=== PATIENT | male | born 1970 | race African-American/Black ===

== ENCOUNTER 2016-03-25 05:56 | Inpatient (IN) | payer BC ==
[2016-03-24 16:31] LABS: HEMATOCRIT 41.8 % (42.0-54.0); HEMOGLOBIN 13.3 g/dL (13.5-17.5); MCH 24.4 pg (26.0-34.0); MCHC 31.8 g/dL (31.0-37.0); MCV 76.8 fL (80.0-100.0); MEAN PLATELET VOLUME 9.1 fL (7.4-10.4); RBC 5.44 10x6/uL (4.20-6.10); RDW 15.9 % (11.5-14.5); WBC 13.1 10x3/uL (4.8-10.8)
[2016-03-24 16:40] LABS: APTT 29.3 SECONDS (22.8-39.4); INR 1.01 (0.85-1.17); PROTIME 13.1 SECONDS (11.6-15.0)
[2016-03-24 16:50] LABS: ALBUMIN 3.9 g/dL (3.4-5.0); ANION GAP 18.6 mmol/L (8-16); BILIRUBIN - TOTAL 0.26 mg/dL (0.2-1.3); CALCIUM 9.4 mg/dL (8.5-10.1); CARBON DIOXIDE 21.7 mmol/L (21.0-32.0); CREATININE - SERUM 6.6 mg/dL (0.6-1.3); POTASSIUM - SERUM 5.3 mmol/L (3.5-5.1); PROTEIN - SERUM 7.4 g/dL (6.4-8.2)
[2016-03-24 17:03] LABS: APPEARANCE CLEAR (CLEAR); BILIRUBIN NEGATIVE (NEGATIVE); COLOR YELLOW (YELLOW); GLUCOSE NEGATIVE (NEGATIVE); KETONE NEGATIVE (NEGATIVE); LEUKOCYTE ESTERASE NEGATIVE (NEGATIVE); NITRITE NEGATIVE (NEGATIVE); PROTEIN 1+ mg/dL (NEGATIVE); SPECIFIC GRAVITY 1.015 (1.005-1.020); UROBILINOGEN NORMAL (NORMAL)
[2016-03-24 17:04] LABS: BACTERIA FEW /hpf (NONE SEEN); EPITHELIAL CELLS 0-5 /hpf (0-5); MUCUS <1+ /lpf (NONE SEEN); RED CELLS - URINE OCC /hpf (0-5); WHITE CELLS - URINE RARE /hpf (0-5)
[2016-03-25] VITALS (37 sets, daily range): BP systolic 102–169; BP diastolic 95–122; BMI 27.1; BMI 26.5
[~2016-03-25] VITALS: Ht 185.4 cm; Wt 85.5 kg
[~2016-03-25 05:56] MED LIST: ALTACE10 MG PO; HYDRALAZINE HCL25 MG PO; NORVASC10 MG PO; PREDNISONE5 MG PO; SANDIMMUNE25 MG PO; ULORIC40 MG PO; ZEMPLAR1 MCG PO
--- NOTE | 2016-03-25 10:10 | NUR ---
ADMIT TO ICU. L ARM WRAPPED IN ROYCE WRAPPED IN SLING PERIFERAL VASCULAR CHECK DONE. VOICES NO CO AT TIME.
[2016-03-25 11:19] LABS: HEMATOCRIT 39.2 % (42.0-54.0); HEMOGLOBIN 12.3 g/dL (13.5-17.5); MCH 24.2 pg (26.0-34.0); MCHC 31.4 g/dL (31.0-37.0); MCV 77.2 fL (80.0-100.0); MEAN PLATELET VOLUME 8.8 fL (7.4-10.4); RBC 5.08 10x6/uL (4.20-6.10); RDW 15.7 % (11.5-14.5); WBC 11.7 10x3/uL (4.8-10.8)
--- NOTE | 2016-03-25 11:33 | NUR ---
Is the patient Alert and Oriented? Yes 0 * How many steps to enter\exit or inside your home? 3 0 * PCP DR. SCHWARTZ 0 * Pharmacy [facility] [address] 0 * Preadmission Environment Home with Family 0 * ADLs Independent 0 * Equipment None 0 * List name and contact numbers for known caregivers / representatives who currently or will assist patient after discharge: SPOUSE: LITTLE [phone] * Community resources currently utilized None 0 * Additional services required to return to the preadmission environment? No 0 * Can the patient safely return to the preadmission environment? Yes 0 * Has this patient been hospitalized within the prior 30 days at any hospital? No PATIENT LIVES AT HOME WITH HIS . HIS IS INDEPENDENT IN HIS ADL'S. HIS , LITTLE, WILL DRIVE HIM HOME AT DISCHARGE. HIS PCP IS DR. SCHWARTZ. PATIENT GETS HIS MEDICATION FOR [facility] ON [address] HE DOES NOT USE ANY EQUIPMENT AND DENIES EVER HAVING HOME HEALTH. THERE ARE 3 STEPS TO ENTER HIS HOME. NO DISCHARGE NEEDS IDENTIFIED AT THIS TIME.
[2016-03-25 11:36] LABS: ANION GAP 12.7 mmol/L (8-16); CALCIUM 9.1 mg/dL (8.5-10.1); CARBON DIOXIDE 25.8 mmol/L (21.0-32.0); POTASSIUM - SERUM 5.5 mmol/L (3.5-5.1)
--- NOTE | 2016-03-25 13:00 | NUR ---
SIPPING WATER NO CO AT TIME.
--- NOTE | 2016-03-25 16:30 | NUR ---
EATING FULL LIQUID TRAY NO CO AT TIME.
--- NOTE | 2016-03-25 18:00 | NUR ---
FAMILY AT BEDSIDE. UPDATE GIVEN.
--- NOTE | 2016-03-25 19:45 | NUR ---
ASSESSMENT COMPLETED. SEE ASSESSMENT. LEFT ARM IN SLING WRAPPED IN ROYCE WRAP. PULSE AUDIBLE BY DOPPLER TO THIRD FINGER. RT IJ TRIALYSIS CATH SALINE LOCKED. RT HAND PIV WITH NS @ 20ML/HR. AT BEDSIDE. TEDS AND SCD'S TO LE BILATERAL. AMADOR CATH TO CRITICORE MONITORING SYSTEM. CLEAR, LT YELLOW URINE NOTED. WILL MONITOR.
--- NOTE | 2016-03-25 19:58 | NUR ---
PRN NORCO GIVEN PER REQUEST AND 2100 MEDS GIVEN WITHOUT DIFFICULTY AFTER EATING SOME CHICKEN NOODLE SOUP NOODLES AND A SMALL AMT OF BROTH. WILL MONITOR.
--- NOTE | 2016-03-25 21:00 | NUR ---
NEUROVASULAR ASSESSMENT COMPLETED. LEFT HAND WITH AUDIBLE PULSES VIA DOPPLER TO LEFT THIRD FINGER BY THE [facility]. MORE WATER GIVEN.
--- NOTE | 2016-03-25 22:30 | NUR ---
REPOSITIONED SELF IN BED. TURNED MORE TO RT SIDE. ELEVATED RT ARM. ICE GIVEN PER REQUEST. CHECKED PULSE TO LEFT HAND, AUDIBLE BY DOPPLER. FINGERS WARM TO TOUCH AND ABLE TO MOVE THEM. REPORTS SOME "NUMB" FEELINGS TO BOTH HANDS SOMEWHAT. WILL MONITOR.
[2016-03-26] VITALS (18 sets, daily range): BP systolic 135–166; BP diastolic 98–121; Ht 185.4 cm; Wt 85.5 kg
--- NOTE | 2016-03-26 00:16 | NUR ---
PRN PO PAIN MEDS GIVEN PER REQUEST. REPORTS PAIN TO LEFT ARM IS ABOUT A 4/10 ON NUMBER SCALE.
--- NOTE | 2016-03-26 02:10 | NUR ---
COUGHING. NON-PRODUCTIVE AT THIS TIME. B/P CUFF CAME OFF. REPLACED ONTO ARM. DENIES NEEDS. WILL MONITOR.
--- NOTE | 2016-03-26 03:33 | NUR ---
IV MORPHINE GIVEN FOR PAIN PER REQUEST. REASSESSMENT COMPLETED. SEE ASSESSMENT. COUGHING. UNABLE TO HAVE A PRODUCTIVE COUGH THUS FAR. WATER GIVEN PER REQUEST. WILL CONTINUE TO MONITOR.
--- NOTE | 2016-03-26 05:00 | NUR ---
MONO GIVEN PER REQUEST. DOES NOT WANT TO TAKE PO PAIN PILL WITHOUT SOMETHING ON HIS STOMACH. WILL CALL WHEN HE NEEDS THE PAIN PILL. REASSESSED CIRCULATION TO LEFT 3RD FINGER. AUDIBLE BY DOPPLER. FINGERS WARM TO TOUCH AND MOVEMENT INTACT. WILL MONITOR.
--- NOTE | 2016-03-26 05:55 | NUR ---
AM LABS DRAWN FROM RT IJ TRIALYSIS. DRAWS BLOOD AND FLUSHES WITHOUT DIFFICULTY. LEMON-STEBBINS DRINK GIVEN PER REQUEST. DENIES NEED FOR PAIN MEDS AT THIS TIME.
[2016-03-26 06:07] LABS: BASOPHILS 0.2 % (0.0-2.0); EOSINOPHILS 1.1 % (0-7); HEMATOCRIT 37.9 % (42.0-54.0); HEMOGLOBIN 11.8 g/dL (13.5-17.5); IMMATURE GRANULOCYTES 0.4 % (0-5); LYMPHOCYTES 15.3 % (15-50); MCH 24.1 pg (26.0-34.0); MCHC 31.1 g/dL (31.0-37.0); MCV 77.5 fL (80.0-100.0); MEAN PLATELET VOLUME 8.9 fL (7.4-10.4); MONOCYTES 10.2 % (2-11); NEUTROPHILS 72.8 % (40-80); PLATELET COUNT 255 10x3/uL (130-400); RBC 4.89 10x6/uL (4.20-6.10); RDW 15.8 % (11.5-14.5); WBC 14.1 10x3/uL (4.8-10.8)
[2016-03-26 07:05] LABS: ANION GAP 18.6 mmol/L (8-16); CALCIUM 8.8 mg/dL (8.5-10.1); CARBON DIOXIDE 20.7 mmol/L (21.0-32.0); CREATININE - SERUM 7.1 mg/dL (0.6-1.3); POTASSIUM - SERUM 5.3 mmol/L (3.5-5.1)
--- NOTE | 2016-03-26 07:30 | NUR ---
SPOKE WITH LUIS DEL VALLE REGARDING I.R. CONSULT. CONSULT D/C'ED IN COMPUTER.
--- NOTE | 2016-03-26 07:30 | NUR ---
ASSESSMENT COMPLETE. AAO X4. SINUS TACHYCARDIA HR 102. S1S2 NOTED PEDAL PULSES PALP. RIGHT RADIAL PULSE PALP. LEFT MIDDLE FINGER PULSE FOUND BY DOPPLER. CLEAR LUNG SOUNDS IN ALL LOBES, ON ROOM AIR. ACTIVE BOWEL SOUNDS X4. GENERALIZED WEAKNESS. LEFT ARM IN WRAP AND SLING. ENCOURAGED COUGH AND DEEP BREATHING EXERCISES. BRITTNY AND SCD'S ON. FOR OTHER ASSESSMENT FINDINGS SEE FLOWSHEET.
--- NOTE | 2016-03-26 09:05 | NUR ---
FAMILY AT BEDSIDE, UPDATE PROVIDED. PATIENT REFUSED TO TURN TO LEFT SIDE. ENCOURAGED DEEP BREATHING, STRONG COUGH EFFORT.
--- NOTE | 2016-03-26 11:15 | NUR ---
REASSESSMENT COMPLETE. LEFT MIDDLE FINGER PULSE FOUND BY DOPPLER. PAIN IN LEFT ARM/SHOULDER. MINIMAL CHANGES IN OTHER ASSESSMENT FINDINGS SEE FLOWSHEET FOR DETAILS.
--- NOTE | 2016-03-26 13:00 | NUR ---
REMOVED AMADOR PER ORDER OF DR. ROMERO. GAVE PATIENT URINAL. PT VERBALIZES RELIEF OF PAIN IN LEFT SHOULDER.
--- NOTE | 2016-03-26 15:00 | NUR ---
DR. HANNAH AT BEDSIDE. NEW ORDERS RECEIVED. PATIENT REFUSING PAIN MEDICATION. PAIN 06/06.
--- NOTE | 2016-03-26 17:50 | NUR ---
PATIENT TRANSFERED FROM ICU WITH HX OF LEFT ARM FISTULA ANERYSM. HX CHRONIC KIDNEY DIEASES; HYPERTENTION. PATIENT ARRIVED ON UNIT WITH HIS . ALERT/ORIENT X4. RIGHT IJ TRIPLE PORT. LEFT UPPER ARM SWOLLEN, DRESSING INTACT. ON A RENAL FULL LIQ DIET.
--- NOTE | 2016-03-26 23:44 | NUR ---
NURSE ROUNDS 21:00 - PT AWAKE, ALERT, ORIENTED, SITTING UP IN BED, HOB 45 DEGREES. PT STATES HIS LT ARM PAIN IS WELL CONTROLLED WITH HIS PRN PAIN MEDICATIONS, BUT THAT IT DOES TAKE BOTH MORPHINE AND NORCO FOR ALMOST COMPLETEL RELIEF. PT DENIES ANY ACUTE NEEDS. CONTINUE TO MONITOR CLOSELY.
[2016-03-27 00:23] VITALS: BP 135/85
--- NOTE | 2016-03-27 01:24 | NUR ---
SCD'S REMOVED PER PT REQUEST. BRITTNY ELY STILL ON.
--- NOTE | 2016-03-27 03:02 | NUR ---
PT LYING IN BED, EYES CLOSED, RESPIRATIONS EVEN AND UNLABORED. AT BEDSIDE. PTS HOB IS 45 DEGREES. CONTINUE TO MONITOR CLOSELY.
[2016-03-27 04:20] VITALS: BP 155/99
--- NOTE | 2016-03-27 04:53 | NUR ---
DAILY WEIGHT ON STANDING SCALE IS 196.8 POUNDS / 89.45 KG
[2016-03-27 05:07] LABS: BASOPHILS 0.1 % (0.0-2.0); EOSINOPHILS 0.8 % (0-7); HEMATOCRIT 37.9 % (42.0-54.0); HEMOGLOBIN 11.9 g/dL (13.5-17.5); IMMATURE GRANULOCYTES 0.3 % (0-5); LYMPHOCYTES 10.7 % (15-50); MCH 24.3 pg (26.0-34.0); MCHC 31.4 g/dL (31.0-37.0); MCV 77.3 fL (80.0-100.0); MEAN PLATELET VOLUME 8.9 fL (7.4-10.4); MONOCYTES 11.9 % (2-11); NEUTROPHILS 76.2 % (40-80); PLATELET COUNT 250 10x3/uL (130-400); RDW 15.6 % (11.5-14.5); WBC 14.4 10x3/uL (4.8-10.8)
[2016-03-27 05:59] LABS: ANION GAP 15.2 mmol/L (8-16); CALCIUM 8.9 mg/dL (8.5-10.1); CARBON DIOXIDE 24.1 mmol/L (21.0-32.0); CREATININE - SERUM 6.7 mg/dL (0.6-1.3); PHOSPHOROUS 4.2 mg/dL (2.5-4.9); POTASSIUM - SERUM 5.3 mmol/L (3.5-5.1)
[2016-03-27 08:00] VITALS: BP 145/97
[2016-03-27 12:00] VITALS: BP 138/89
--- NOTE | 2016-03-27 13:15 | NUR ---
ALERT AND ORIENTED X4. FAMILY AT BEDSIDE. TELEMETRY ORDERED PER . INITIATE TELEMETRY MONITORING. SINUS TACH 119bpm ON TELEMETRY. CONTINUE PAIN MANAGEMENT. DENIES SOB. BRITTNY HOES ON FREE FROM WRINKLES. REFUSE SCDs. CONITNUE PLAN OF CARE. BED LOCKED AND LOW. CALL LIGHT IN REACH. TWO SIDERAILS UP.
[2016-03-27 16:00] VITALS: BP 145/99
--- NOTE | 2016-03-27 16:50 | NUR ---
ALERT AND ORIENTED X4. SITTING UP IN BED. TEMPERATURE 99.9. NO TYLENOL ORDERED. REMOVE ALL COVERS EXCEPT ONE SHEET. PLACE ICE PACKS UNDER ARMS BILATERALLY. REASSESS TEMPERATURE IN 20MINS. SINUS TACH 121bpm ON TELEMETRY. PAIN MANAGED. DENIES SOB. BRITTNY HOES ON. FREE FROM WRINKLES. CONTINUE PLAN OF CARE. BED LOCKED AND LOW. CALL LIGHT IN REACH. TWO SIDERAILS UP.
--- NOTE | 2016-03-27 19:23 | NUR ---
PT AWAKE, ALERT, ORIENTED, DENIES ANY NEEDS. CONTINUE TO MONITOR CLOSELY. BED LOW, CALL LIGHT IN REACH, SIDE RAILS X 2, HOB 45 DEGREES.
[2016-03-27 20:00] VITALS: BP 152/94
[2016-03-28] VITALS: BP 132/97
--- NOTE | 2016-03-28 00:57 | NUR ---
PTS HEART RATE CONTINUES TO BE TACHYCARDIC, ESPECIALLY WITH AMBULATING TO BATHROOM. PT DENIES ANY ACUTE NEEDS OR DIFFICULTIES AT THIS TIME. I DISCUSSED WITH PT AND THE POSSIBLE REASONINGS OF AN ELEVATED PULSE RATE, INFECTION, INFLAMMATION, TRAUMA, ETC... PTS TEMP REMAINS 99.1 AT THIS TIME. CONTINUE TO MONITOR CLOSELY.
[2016-03-28 04:00] VITALS: BP 146/93
--- NOTE | 2016-03-28 05:04 | NUR ---
PT AWAKE, ALERT, ORIENTED, DENIES ANY NEEDS AT THIS TIME. I DID COLLECT LAB PER ORDER FROM PTS TRIALYSIS. CONTINUE TO MONITOR CLOSELY. AT BEDSIDE.
[2016-03-28 05:44] LABS: BASOPHILS 0.1 % (0.0-2.0); EOSINOPHILS 0.2 % (0-7); HEMATOCRIT 40.7 % (42.0-54.0); HEMOGLOBIN 12.9 g/dL (13.5-17.5); IMMATURE GRANULOCYTES 0.5 % (0-5); LYMPHOCYTES 9.3 % (15-50); MCH 24.1 pg (26.0-34.0); MCHC 31.7 g/dL (31.0-37.0); MCV 75.9 fL (80.0-100.0); MEAN PLATELET VOLUME 9.5 fL (7.4-10.4); MONOCYTES 18.1 % (2-11); NEUTROPHILS 71.8 % (40-80); PLATELET COUNT 266 10x3/uL (130-400); RBC 5.36 10x6/uL (4.20-6.10); RDW 15.4 % (11.5-14.5); WBC 19.5 10x3/uL (4.8-10.8)
[2016-03-28 05:55] LABS: ANION GAP 17.3 mmol/L (8-16); CALCIUM 9.6 mg/dL (8.5-10.1); CARBON DIOXIDE 24.8 mmol/L (21.0-32.0); CREATININE - SERUM 7.1 mg/dL (0.6-1.3); POTASSIUM - SERUM 5.1 mmol/L (3.5-5.1)
[2016-03-28 08:00] VITALS: BP 155/101
[2016-03-28 12:00] VITALS: BP 142/100
--- NOTE | 2016-03-28 14:16 | EC ---
PATIENT:ELLIOTT CARCAMO DATE OF SERVICE: 03/25/16 SEX: M MEDICAL RECORD: [id number] DATE OF : [birth year] LOCATION:D.M2 D.211 AGE OF PATIENT: 45 ADMISSION DATE: 03/25/16 REFERRING PHYSICIAN: INTERPRETING PHYSICIAN: SRIKANTH NOVOA MD ECHOCARDIOGRAM REPORT ECHO CHARGES 4 ECHO COMPLETE CLINICAL DIAGNOSIS: TACHYCARDIA ECHOCARDIOGRAPHIC MEASUREMENTS (adult normal given) AC root (d.<3.7cm) 3.5 LV Septum d (<1.2 cm> 1.3 Valve Excursion 2.3 LV Septum (systole) 2.0 Left Atria (s.<4.0cm> 3.1 LVPW d(<1.2cm) 1.4 RV (d.<2.3cm) 2.3 LVPW (sytole) 1.9 LV diastole(<5.6CM) 4.8 MV E-F(>70mm/sec) LV systole 2.7 LVOT Diameter 1.9 MV exc.(>10mm) Est.ejection fraction (50-75%) Pericardial Effusion N DOPPLER: LVIT A 96.0 E 49.0 LA RVSP 43.0 LVOT 110 AOP1/2T Asc. Ao 160 RVOT 100 RA PA 107 AV Gradient Peak 10.3 AV Mean 4.4 AV Area 2.1 MV Gradient Peak 6.1 MV Mean 2.0 MV Area COMMENTS: Digital Media Coordinator: Leesa BALDWIN Glucose And Syrup Weigher:Douglas Unger TAPE# PACS DATE OF SERVICE: 03/28/2016 Echocardiogram FINDINGS: 1. Left ventricle chamber size is within normal limits. Left ventricular systolic function is normal. Overall ejection fraction estimated at 55%. 2. Left atrium, right atrium and right ventricular chamber sizes are within normal limits. 3. Valvular structures have normal structure and motion. ECHOCARDIOGRAM REPORT [id number] ELLIOTT CARCAMO 4. Doppler interrogation only reveals trace tricuspid regurgitation, no other valvular insufficiency or stenosis. Pulmonary systolic pressure is normal estimated 43 mmHg. 5. No evidence of pericardial effusion or left ventricular thrombus. TRANSINT:[id number] Voice Confirmation ID: [id number] DOCUMENT ID: [id number] SRIKANTH NOVOA MD at 1419 CC: [id number] DICTATION DATE: 03/28/16 110 ACCOUNTING INSTRUCTOR: 03/28/16 1205 ADM IN [facility] [address] [place] [id number]
[2016-03-28 16:00] VITALS: BP 142/91
--- NOTE | 2016-03-28 18:48 | NUR ---
ALERT AND ORIENTED X4. DENIES PAIN MEDICATION. TEMP 100.3. ENCOURAGE INSENTIVE SPIROMETER PER . REMOVE ALL COVERS. DENIES SOB. SINUS TACH 101bpm ON TELEMETRY. CONTINUE PLAN OF CARE. AT BEDSIDE. PREPARE SHIFT CHANGE REPORT. BED LOCKED AND LOW. CALL LIGHT IN REACH. TWO SIDERAILS UP.
[2016-03-28 20:00] VITALS: BP 127/88
[2016-03-29] VITALS: BP 127/85
--- NOTE | 2016-03-29 01:20 | NUR ---
NURSE ROUNDS 19:30 - PT AWAKE, ALERT, ORIENTED, SITTING UP IN BED REQUESTING TO HAVE DRESSING ON LEFT ARM CHECKED. THERE IS A SMALL AMOUNT OF OOZING UNDER THE DRESSING THAT IS FROM MUCH EARLIER, THE BANDAGE IS INTACT, DRY, AND CLEAN. PT HAS ALSO HAD A LOW GRADE TEMP WITH BODY ACHES AND FEELING COLD. PRN TYLENOL GIVEN AND WILL MONITOR CLOSELY. PT DENIES ANY NEEDS AND REFUSES TO TAKE AND OPIOD PAIN MEDICATION AT THIS TIME R/T DOES NOT LIKE BEING DROWSY. AT BEDSIDE. CONTINUE TO MONITOR CLOSELY.
[2016-03-29 04:00] VITALS: BP 120/78
[2016-03-29 06:11] LABS: HEMATOCRIT 38.6 % (42.0-54.0); HEMOGLOBIN 12.4 g/dL (13.5-17.5); MCH 24.3 pg (26.0-34.0); MCHC 32.1 g/dL (31.0-37.0); MCV 75.7 fL (80.0-100.0); MEAN PLATELET VOLUME 9.2 fL (7.4-10.4); PLATELET COUNT 265 10x3/uL (130-400); RDW 15.2 % (11.5-14.5); WBC 21.6 10x3/uL (4.8-10.8)
[2016-03-29 06:19] LABS: ANION GAP 12.2 mmol/L (8-16); CALCIUM 9.7 mg/dL (8.5-10.1); CARBON DIOXIDE 27.4 mmol/L (21.0-32.0); POTASSIUM - SERUM 4.6 mmol/L (3.5-5.1)
[2016-03-29 06:22] LABS: PHOSPHOROUS 5.8 mg/dL (2.5-4.9)
[2016-03-29 07:44] LABS: LYMPHOCYTES 12 % (15-50); MONOCYTES 15 % (2-11); NEUTROPHILS 70 % (40-80); PLATELET ESTIMATE NORMAL
[2016-03-29 08:20] VITALS: BP 145/97
[2016-03-29 12:07] VITALS: BP 124/86
--- NOTE | 2016-03-29 13:30 | NUR ---
ALERT AND ORIENTED X4. EATING IN BED. LT ARM DRESSING CHANGED. NO DRAINAGE. DENIES PAIN OR SOB. PHYSICAL THERAPY ACCOMPANY AMBULATING IN [place]Z. NO ASSISTANCE NEEDED. GAIT STEADY. SINUS RHYTHM 97bpm ON TELEMETRY. CONTINUE PLAN OF CARE. BED LOCKED AND LOW. CALL LIGHT IN REACH. TWO SIDERAILS UP. BRITTNY HOES ON. FREE FROM WRINKLES.
--- NOTE | 2016-03-29 13:53 | NUR ---
Nutrition follow-up: Diet: Renal PO Intake ~60% average of last 9 meals Labs reviewed Wt: 190# Will continue to provide food choices with selective menus and honor food preferences within diet restrictions. RDN will order Nepro BID. RDN following.
[2016-03-29 16:07] VITALS: BP 125/80
--- NOTE | 2016-03-29 18:09 | NUR ---
ALERT AND ORIENTED X4. RESTING IN BED. AT BEDSIDE. NO CHANGE. DENIES SOB OR PAIN. PREPAIR SHIFT CHANGE REPORT. SINUS RHYTHM 98bpm ON TELEMETRY. CONTINUE SAFETY PRECAUTIONS.
[2016-03-29 19:00] VITALS: BP 108/71
--- NOTE | 2016-03-29 21:03 | NUR ---
PT AWAKE, ALERT, ORIENTED, DENIES ANY NEEDS, DENIES FEVER AT THIS TIME, DENIES PAIN. BLOOD CXL X 1 BEING DRAWN FROM RIGHT FOREARM AT THIS TIME. WILL COLLECT U/A ORDERED. CONTINUE TO MONITOR CLOSELY. AT BEDSIDE.
--- NOTE | 2016-03-29 21:41 | NUR ---
HOLDING PTS B/P R/T IT BEING 108/71 AT THIS TIME. PT STATES WHEN IT IS THIS LOW, HE FEELS WEAK. WILL CONTINUE TO MONITOR CLOSELY AND ADMINISTER PRN.
[2016-03-29 22:41] LABS: APPEARANCE CLEAR (CLEAR); BILIRUBIN NEGATIVE (NEGATIVE); COLOR YELLOW (YELLOW); GLUCOSE NEGATIVE (NEGATIVE); KETONE NEGATIVE (NEGATIVE); LEUKOCYTE ESTERASE NEGATIVE (NEGATIVE); NITRITE NEGATIVE (NEGATIVE); PROTEIN 1+ mg/dL (NEGATIVE); SPECIFIC GRAVITY 1.015 (1.005-1.020); UROBILINOGEN NORMAL (NORMAL)
[2016-03-29 22:42] LABS: RED CELLS - URINE 0-5 /hpf (0-5); WHITE CELLS - URINE OCC /hpf (0-5)
[2016-03-29 22:43] LABS: BACTERIA FEW /hpf (NONE SEEN)
[2016-03-30] VITALS: BP 126/89
[2016-03-30 04:00] VITALS: BP 125/86
--- NOTE | 2016-03-30 05:47 | NUR ---
PT LYING IN BED, EYES CLOSED, RESPIRATIONS EVEN AND UNLABORED, EASILY ROUSABLE TO VERBAL STIMULI. PT AND ARE BOTH ASKING WHEN POSSIBLE D/C WILL BE. DENIES PAIN OR ANY OTHER NEEDS. CONTINUE TO MONITOR CLOSELY.
[2016-03-30 06:21] LABS: BASOPHILS 0.1 % (0.0-2.0); EOSINOPHILS 0.5 % (0-7); HEMATOCRIT 37.1 % (42.0-54.0); HEMOGLOBIN 11.9 g/dL (13.5-17.5); IMMATURE GRANULOCYTES 0.4 % (0-5); LYMPHOCYTES 9.8 % (15-50); MCHC 32.1 g/dL (31.0-37.0); MCV 74.8 fL (80.0-100.0); MEAN PLATELET VOLUME 9.6 fL (7.4-10.4); MONOCYTES 16.9 % (2-11); NEUTROPHILS 72.3 % (40-80); PLATELET COUNT 337 10x3/uL (130-400); RBC 4.96 10x6/uL (4.20-6.10); RDW 15.2 % (11.5-14.5); WBC 20.4 10x3/uL (4.8-10.8)
[2016-03-30 06:37] LABS: ANION GAP 16.4 mmol/L (8-16); CALCIUM 9.4 mg/dL (8.5-10.1); CARBON DIOXIDE 24.3 mmol/L (21.0-32.0); CREATININE - SERUM 6.5 mg/dL (0.6-1.3); POTASSIUM - SERUM 4.7 mmol/L (3.5-5.1)
[2016-03-30 07:48] VITALS: BP 139/78
[2016-03-30 11:35] VITALS: BP 137/101
--- NOTE | 2016-03-30 13:09 | NUR ---
INTRODUCED SELF TO PT, PT STATES NO NEW NEEDS AT THIS TIME, WILL CONTINUE TO MONITOR, CALL LIGHT WITHIN REACH.
--- NOTE | 2016-03-30 14:15 | NUR ---
PT RESTING QUIETLY WATCHING TV, RESPIRATIONS EVEN, SIDE RAILS UP X'S 2, BED IN LOW POSITION, CALL LIGHT WITHIN REACH, HARRIET CONTINUE TO MONITOR.
[2016-03-30 16:14] VITALS: BP 135/54
--- NOTE | 2016-03-30 16:27 | NUR ---
PERIPHERAL IV INSERTED, 20 GAUGE X'S 1 STICK, RIGHT INNER FOREARM. PT TOLERATED WELL, WILL CONTINUE TO MONITOR, CALL LIGHT WITHIN REACH.
--- NOTE | 2016-03-30 17:14 | NUR ---
REMOVED PT'S IJ, PT TOLERATED WELL. NO OTHER NEEDS AT THIS TIME. WILL CONTINUE TO MONTIOR.
--- NOTE | 2016-03-30 18:08 | NUR ---
PT RESTING QUIETLY, RESPIRATIONS EVEN, EMPTIED 600 CC OF CLEAR YELLOW URINE, WILL CONTINUE TO MONITOR, CALL LIGHT WITHIN REACH.
[2016-03-30 20:00] VITALS: BP 124/81
[2016-03-31] VITALS: BP 125/56
[2016-03-31 04:00] VITALS: BP 128/90
--- NOTE | 2016-03-31 04:21 | NUR ---
NURSE ROUNDS 19:30 - PT AWAKE, ALERT, ORIENTED, SITTING UP IN BED, DAUGHTER AT BEDSIDE. PT DENIED ANY NEEDS. CONTINUE TO MONITOR CLOSELY.
[2016-03-31 06:07] LABS: BASOPHILS 0.2 % (0.0-2.0); EOSINOPHILS 0.6 % (0-7); HEMATOCRIT 36.1 % (42.0-54.0); HEMOGLOBIN 11.7 g/dL (13.5-17.5); IMMATURE GRANULOCYTES 0.5 % (0-5); LYMPHOCYTES 11.2 % (15-50); MCH 24.2 pg (26.0-34.0); MCHC 32.4 g/dL (31.0-37.0); MCV 74.7 fL (80.0-100.0); MEAN PLATELET VOLUME 9.3 fL (7.4-10.4); MONOCYTES 14.9 % (2-11); NEUTROPHILS 72.6 % (40-80); PLATELET COUNT 351 10x3/uL (130-400); RBC 4.83 10x6/uL (4.20-6.10); RDW 15.1 % (11.5-14.5); WBC 16.8 10x3/uL (4.8-10.8)
[2016-03-31 06:33] LABS: ANION GAP 16.5 mmol/L (8-16); CALCIUM 9.7 mg/dL (8.5-10.1); CARBON DIOXIDE 23.2 mmol/L (21.0-32.0); CREATININE - SERUM 6.1 mg/dL (0.6-1.3); POTASSIUM - SERUM 4.7 mmol/L (3.5-5.1)
[2016-03-31 07:17] VITALS: BP 124/88
--- NOTE | 2016-03-31 07:57 | NUR ---
0710-AM ROUNDING MADE WITH PATIENT RESTING WITH EYES CLOSED, RESP ARE EVEN AND NON LABORED. ON HEART MONITOR SHOWING SR, HR 96. RIGHT FA SEEN WITH SALINE LOCK. ON ROOM AIR. BRITTNY HOSE ON. WILL CONTINUE TO MONITOR.
[2016-03-31 08:10] VITALS: BP 124/88
--- NOTE | 2016-03-31 08:27 | NUR ---
PT IN RIGHT LATERAL POSITION, EYES CLOSED. AROUSED UPON ENTERING ROOM. AM MEDS GIVEN, SEE EMAR. IV IN RIGHT FA NOTED TO BE INFILTRATED. DC'D WITH CATH TIP INTACT. PROTONIX AND ANCEF IV NOT GIVEN AT THIS TIME. DEDRICK QUEVEDO NOTIFIED. PT DENIES PAIN OR FURTHER NEEDS AT THIS TIME.
--- NOTE | 2016-03-31 08:30 | NUR ---
TERRI PADGETT APN PAGED IV IS INFILTRATED TO SEE IF WE CAN SWITCH THE ANCEF TO ORAL. AWAITING CALL BACK.
--- NOTE | 2016-03-31 08:34 | NUR ---
CALL BACK FROM [facility] WITH NEW ORDERS.
[2016-03-31] MEDS ORDERED: METOPROLOL TART50 MG PO (09:15)
[2016-03-31 11:50] VITALS: BP 119/83
--- NOTE | 2016-03-31 13:10 | NUR ---
VERBAL AND WRITTEN DISCHARGE INSTRUCTIONS GIVEN TO PATIENT. AWAITING RIDE.
--- NOTE | 2016-03-31 13:20 | NUR ---
DISCHARGED HOME WITH PARENT.
--- NOTE | 2016-04-02 13:50 | OP ---
PATIENT NAME: ELLIOTT CARCAMO MEDICAL RECORD: [id number] :74 LOCATION:D. D.2113 ADMISSION DATE:03/25/16 SURGEON: SEBASTIAN ROMERO MD DATE OF OPERATION: 03/25/2016 SURGEON: Sebastian Romero M.D. DIRECTOR OF MANAGED CARE: Stefan Ramachandran MD ANESTHESIA: General endotracheal, Dr. Herndon. OPERATION PERFORMED: 1. Resection of false aneurysm, left brachial artery. 2. Repair of left brachial artery. 3. Ligation of the cephalic vein at the subclavian left upper extremity. 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 INDICATION FOR OPERATION: Giant AV fistula. FINDINGS AT OPERATION: Giant AV fistula, large brachial artery and large cephalic vein, and false aneurysm of the brachial artery. ESTIMATED BLOOD LOSS: Less than 100 mL. DESCRIPTION OF PROCEDURE: After informed consent, adequate preoperative medication evaluation, the patient was brought to the operating room and placed on the table in the supine position. After induction of general endotracheal anesthesia and application of appropriate monitoring devices, the left upper extremity and shoulder were prepped and draped in a sterile field, utilizing Betadine scrub, alcohol, and Betadine solution. A Betadine-impregnated drape was also used. A curvilinear incision was made in the upper arm and curved into a transverse incision over the antecubital fossa. Dissection was carried down to the fascia. The false aneurysm was rotated laterally and dissection carried out to the brachial artery, which was controlled above and below the fistula. The fistula was then dissected in its proximal portion and resection of the false aneurysm was performed utilizing an Endo-AMBROCIO stapler at the neck of the false aneurysm. The stump was then oversewn plicating the area and reconstructing the brachial artery at this point. Attention was then turned toward the cephalic vein, as it enters the subclavian vein, a subclavian incision was made and dissection carried down to the fascia. The deltopectoral groove was dissected and the vein isolated above the subclavian vein. This was then transected with an Endo-AMBROCIO stapler. The lower end of the fistulous vein was opened and blood drained. There was no active bleeding from collateral veins into this area. This was then ligated more proximally utilizing an Endo-AMBROCIO stapler. The brachial artery was then secured in its anatomic position and the wounds irrigated with copious amounts of antibiotic solution and normal saline. There was no active bleeding. Instrument count and sponge counts were correct times 2. The antecubital fossa was closed with 3-0 Vicryl and 5-0 subcuticular Monocryl. The subclavian incision was closed with 3-0 Vicryl and 5-0 subcuticular Monocryl. Sterile dressings were applied. An Jamie bandage was OPERATIVE REPORT [id number] ELLIOTT CARCAMO used to wrap the hand and arm exposing the fingers for neurovascular checks and a shoulder immobilizer was used to place compression on the venous structures in the left upper extremity and subclavian area. The patient tolerated this portion of the procedure well. The case was turned over to Dr. Ramachandran for placement of a Trialysis catheter. The patient tolerated the procedure well and was transferred to the ICU in stable condition. TRANSINT:[id number] Voice Confirmation ID: [id number] DOCUMENT ID: [id number] SEBASTIAN ROMERO MD at 1350 CC: [id number] DICTATION DATE: 03/25/16 1028 PRE OWNED SALES CONSULTANT: 03/25/160 DIS IN 03/31/16 [facility] [address] [place] [address]
--- NOTE | 2016-04-02 13:50 | HP ---
PATIENT: ELLIOTT CARCAMO MEDICAL RECORD: [id number] ACCOUNT: [id number] LOCATION:[address] : 74 ADMISSION DATE: 03/25/16 HISTORY AND PHYSICAL EXAMINATION ELLIOTT Proctor (45yo, M) ID# [id number]. Date/Time03/17/2016 01:54EKILR02/17/1973Servic Dept.NPP_[facility] ClinicProviderEDKELLY ROMERO MDInsuranceMed Primary: [place] Insurance # : [id number] Employer Name : [employer] Prescription: CMX - Member is eligible. 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 Here for test results of MRA LUE03/17/2016 01:42 pmBMI:27.1 03/17/2016 01:42 pmAllergies Reviewed Allergies NKDAMedications Reviewed Medications amLODIPine 10 mg nkoasr76/29/16 filledCaremarkcolchicine 0.6 mg capsule Take 1 capsule(s) as needed by oral route.02/23/16 enteredCindy BrowncycloSPORINE 25 mg sxovsmq39/12/17 filledCaremarkFluzone Quad [id number] 60 mcg (15 mcg x 4)/0.5 mL IM xdhqrtktig74/29/16 filledCaremarkhydrALAZINE 25 mg /24/16 filledCaremarkK-Phos Original 500 mg soluble /13/16 filledCaremarkmethylPREDNISolone 4 mg tablets in a dose pack08/01/15 filledCaremarkpredniSONE 5 mg eferms66/24/16 filledCaremarkramipril 10 mg unttufd54/24/16 filledCaremarkUloric 40 mg tablet Take 1 tablet(s) every day by oral route.02/23/16 enteredCindy BrownZemplar 1 mcg jpvksog96/24/16 filledCaremarkProblems Reviewed Problems 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 HPI Peripheral Vascular Disease Reported by patient. Notes: LUE uncomfortable, feels heavy compared to right side. No difference in strength side to side. aneurysmal AV fistula ROS ROS as noted in the HPI Physical Exam Patient is a 45-year-old male. Constitutional: General Appearance well nourished and developed and healthy-appearing. Level of Distress NAD. Ambulation ambulating normally. Cardiovascular: Apical Impulse not displaced or no thrill. Heart Auscultation normal s1 and s2; no murmurs, rubs, or gallops; and RRR. Arterial Pulses no abdominal aorta bruits, femoral bruits, or popliteal bruits and 2+ bilateral, carotid 2+ bilateral, femoral 2+ bilate ral, popliteal 2+ bilateral, and dorsalis pedis 2+ bilateral; large left arterial venous fistula with aneurysmal changes antecubital mid and upper arm and axillary artery. Edema no edema and varicosities; giant AV fistula left upper extremity. Lungs: Repir atory Effort no dyspnea. Percussion no hyperresonance or dullness or flatness. Auscultation no wheezing, rhonchi, or rales / crackles and breathing sounds normal, good air movement, and CTA except as noted. Abdomen: Bowl Sounds normal. Inspection and Palp ation no tenderness, guarding, masses, or rebound tenderness and soft and non-distended. Liver non-tender and no hepatomegaly. Spleen non-tender and no splenomegaly. Hernia none palpable. Musculoskeletal System: Gait And Stance normal gait and stance. Digits and Nails normal nails and no cyanosis. Neurologic: Cranial Nerves grossly intact. Reflexes DTRs 2+ bilaterally throughout. Sensation grossly intact. Lymph Nodes: Lymph Nodes no cervical LAD, supraclavicular LAD, axillary LAD, or inguinal LAD. Eyes: Lids and Conjunctivae no discharge or pallor and non-injected. Pupils PERRLA. Cornea grossly intact. EOM EOMI. Lens clear. Sclerae non-icteric. Neck: Neck no masses, enlarged lymph nodes, or carotid bruits and supple and trachea midline. Thyroid no enlargement or nodules and non-tender. HISTORY AND PHYSICAL [id number] ELLIOTT CARCAMO Skin: Inspection and Palpation no rash, lesions, ulcers, jaundice, or abnormal nevi. 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 Encounter Sign-Off Encounter signed-off by Sebastian Romero MD, 03/17/2016. Encounter performed and documented by Sebastian Romero MD Encounter reviewed & signed by Sebastian Romero MD on 03/17/2016 at 2:18pm SEBASTIAN ROMERO MD at 1350 CC: [id number] DICTATION DATE: 03/17/16 1418 ENTRY EXAMINER: DM 03/23/16 1053 DIS IN 03/31/16 [facility] [address] [place] [address]
--- NOTE | 2016-04-27 10:18 | OP ---
PATIENT NAME: ELLIOTT CARCAMO MEDICAL RECORD: [id number] :74 LOCATION:D. D.2113 ADMISSION DATE:03/25/16 SURGEON: STEFAN GOLD MD DATE OF OPERATION: 03/25/2016 PREOPERATIVE DIAGNOSIS: End-stage renal disease without chronic access for hemodialysis. POSTOPERATIVE DIAGNOSIS: End-stage renal disease without chronic access for hemodialysis. PROCEDURE: Insertion of right internal jugular Trialysis catheter. SURGEON: Stefan Gold MD COST ACCOUNTING ANALYST: None. BLOOD LOSS: Minimal. ANESTHESIA: General. COMPLICATIONS: None. This procedure have occurred at the end of the AV fistula ligation and resection of a pseudoaneurysm, which I assisted Dr. Palumbo with. I alone inserted the Trialysis catheter. I was asked by Dr. Carcamo, the patient's hub bander, to insert the Trialysis catheter in case large volume resuscitation was necessary or hemodialysis. OPERATIVE COURSE: The patient was positioned in the Trendelenburg position. The right neck was sterilely prepped and draped. I percutaneously accessed the right internal jugular vein in an antegrade fashion. A guidewire passed easily. A small skin scarlet was accomplished. A vessel dilator was used to dilate a subcutaneous tract. A short Trialysis catheter was inserted to the hub. This is a non-tunneled, non-cuffed triple lumen hemodialysis catheter. All lumens flushed easily and aspirated dark, nonpulsatile blood. A sterile dressing was applied. A portable chest x-ray would be obtained postoperatively. Trialysis catheter placed 03/25/2016. TRANSINT:[id number] Voice Confirmation ID: [id number] DOCUMENT ID: [id number] STEFAN GOLD MD at 1018 CC: [id number] DICTATION DATE: 03/25/16 1026 ELECTRICIAN CRANE MAINTENANCE: 03/25/161951 DIS IN 03/31/16 [address] [place] [address]
--- NOTE | 2016-04-27 10:18 | OP ---
PATIENT NAME: ELLIOTT CARCAMO MEDICAL RECORD: [id number] :74 LOCATION:D.M2 D.2113 ADMISSION DATE:03/25/16 SURGEON: KAREEM GOLD MD DATE OF OPERATION: 03/25/[address] Palumbo with ligation of a left upper extremity arteriovenous fistula as well as resection of a pseudoaneurysm. My assistance included some sharp dissection. Assistance with a stapling across the vascular structures. A blunt mobilization of the vascular structures. Dissection of the pseudoaneurysm from the surrounding connective tissue. Retraction of tissues. Also, closing the upper chest incision. This was closed with interrupted 3-0 Vicryls as well as a running intracuticular 5-0 Monocryl. I also assisted with placing the dressing including the pressure dressing and the shoulder immobilizer. I began assisting with the operation after he had made the initial incision over the arterial anastomosis. I scrubbed out at the very end of the operation and then proceeded with insertion of a Trialysis catheter. This is sociology research assistant's note on 03/25/2016 TRANSINT:[id number] Voice Confirmation ID: [id number] DOCUMENT ID: [id number] KAREEM GOLD MD at 1018 CC: [id number] DICTATION DATE: 03/25/16 1028 ASSOCIATE DIRECTOR OF SALES: 03/25/161956 DIS IN 03/31/16 [facility] [address] [place] [address]
== END 2016-03-31 13:20 | disposition home or self-care (01) | DRG 253 ==
LOC: D.OPS 05:56 → D.PAN 07:30 → D.ICU 10:18 → D.M2 10:18
PROVIDERS: Internal Medicine Nephrology; Surgery; ADMIT Internal Medicine Cardiovascular Disease
PROC: 05LF0ZZ Occlusion of Left Cephalic Vein, Open Approach (ICD-10-PCS; 2016-03-25)
PROC: 05HM33Z Insertion of Infusion Device into Right Internal Jugular Vein, Percutaneous Approach (ICD-10-PCS; principal; 2016-03-25 07:30)
PROC: 03B80ZZ Excision of Left Brachial Artery, Open Approach (ICD-10-PCS; 2016-03-25 07:30)
DX: I72.1 Aneurysm of artery of upper extremity (principal); N25.81 Secondary hyperparathyroidism of renal origin; I12.0 Hypertensive chronic kidney disease with stage 5 chronic kidney disease or end stage renal disease; N18.5 Chronic kidney disease, stage 5; N17.9 Acute kidney failure, unspecified; E11.22 Type 2 diabetes mellitus with diabetic chronic kidney disease; J06.9 Acute upper respiratory infection, unspecified; R00.0 Tachycardia, unspecified; E78.5 Hyperlipidemia, unspecified; E87.5 Hyperkalemia; F41.9 Anxiety disorder, unspecified

== ENCOUNTER → 2016-04-07 10:37 | Outpatient (CLI) | payer BC ==
[2016-03-26 11:09] VITALS: BMI 26.5
[~2016-04-07 10:37] MED LIST changes: +METOPROLOL TART50 MG PO
== END | disposition home or self-care (01) ==
LOC: D.US 10:37
DX: I77.0 Arteriovenous fistula, acquired (principal)

== ENCOUNTER 2017-06-22 08:47 | Day surgery (SDC) | payer OTHER ==
[~2017-06-22] VITALS: Ht 185.4 cm; Wt 90.7 kg
--- NOTE | ~2017-06-22 | OP ---
PATIENT NAME: ELLIOTT CARCAMO MEDICAL RECORD: [id number] :74 LOCATION:D.[facility]ER[facility] [place] ADMISSION DATE: SURGEON: STEFAN GOLD MD DATE OF OPERATION: 06/22/2017 PREOPERATIVE DIAGNOSES: 1. End-stage renal disease, desires peritoneal dialysis. 2. Leukocytosis. POSTOPERATIVE DIAGNOSES: 1. End-stage renal disease, desires peritoneal dialysis. 2. Leukocytosis. PROCEDURE: Laparoscopic swan neck curl cath left-sided peritoneal dialysis catheter placement. SURGEON: Stefan Gold MD COSMETIC SALES ASSISTANT: None. BLOOD LOSS: Minimal. ANESTHESIA: General. COMPLICATIONS: None. The risks, possible complications and alternatives to procedure were explained to the patient. He elects to proceed. OPERATIVE COURSE: The patient was conveyed to the operating room electively on 06/22/2017. General anesthesia was induced by anesthesia staff. The abdomen was sterilely prepped and draped. A small skin scarlet was accomplished in the left upper quadrant. A Veress needle was inserted through the skin scarlet into the peritoneal cavity. CO2 insufflation was begun. Once a sufficient pneumoperitoneum had been achieved, a 5-mm trocar was inserted in the left lower quadrant. An incision was accomplished transversely cephalad and to the left of the umbilicus. Under internal guidance, utilizing the laparoscopic television camera, I advanced an 11-mm trocar obliquely, medially, and inferiorly. This was done through the secondary incision. Through this 11-mm trocar, I advanced a left-sided swan neck curl cath. I then removed the trocar. While washing this laparoscopically, I ensured that both of the cuffs were in the subcutaneous tissues and that there was not a cuff within the peritoneal cavity. I then tunneled the end of the catheter out through the 5-mm trocar site incision. I ensured there was no kinking or twisting of the catheter. The catheter was sutured to the skin with a 2-0 nylon. The locking device and hub devices were attached. The other skin incisions was closed with a single intracuticular 3-0 Vicryl as well as Dermabond. I then instilled normal saline down through the catheter and aspirated it easily. Sterile dressings were applied. The patient was then extubated and conveyed to post-anesthesia care unit where he was in stable condition. TRANSINT:[id number] Voice Confirmation ID: [id number] DOCUMENT ID: [id number] OPERATIVE REPORT [id number] ELLIOTT CARCAMO ROBERT MD at 1742 CC: STEFAN SCHWARTZ MD [id number] DICTATION DATE: 06/22/17 142 FINISHING TUNNEL OPERATOR: 06/22/17 1536 [facility] 06/22/17 [place] [id number] [place] [id number]
[~2017-06-22 08:47] MED LIST changes: +RENVELA800 MG PO
[2017-06-22 10:06] LABS: HEMATOCRIT 37.6 % (42.0-54.0); HEMOGLOBIN 12.2 g/dL (13.5-17.5); MCH 24.2 pg (26.0-34.0); MCHC 32.4 g/dL (31.0-37.0); MCV 74.6 fL (80.0-100.0); MEAN PLATELET VOLUME 8.9 fL (7.4-10.4); PLATELET COUNT 307 10x3/uL (130-400); RBC 5.04 10x6/uL (4.20-6.10); WBC 21.4 10x3/uL (4.8-10.8)
[2017-06-22 10:31] LABS: LYMPHOCYTES 28 % (15-50); MONOCYTES 7 % (2-11); NEUTROPHILS 65 % (40-80); PLATELET ESTIMATE NORMAL
[2017-06-22 10:34] LABS: INR 0.93 (0.85-1.17); PROTIME 12.1 SECONDS (11.6-15.0)
[2017-06-22 10:38] LABS: ANION GAP 20.4 mmol/L (8-16); CARBON DIOXIDE 21.7 mmol/L (21.0-32.0); CREATININE - SERUM 8.7 mg/dL (0.6-1.3); POTASSIUM - SERUM 4.1 mmol/L (3.5-5.1)
[2017-06-22 11:40] VITALS: BP 155/109; Ht 185.4 cm; Wt 90.7 kg
[2017-06-22 12:39] LABS: APPEARANCE CLEAR (CLEAR); BILIRUBIN NEGATIVE (NEGATIVE); COLOR YELLOW (YELLOW); EPITHELIAL CELLS OCC /hpf (0-5); GLUCOSE 50 mg/dL (NEGATIVE); KETONE NEGATIVE (NEGATIVE); NITRITE NEGATIVE (NEGATIVE); PROTEIN 2+ mg/dL (NEGATIVE); RED CELLS - URINE 0-5 /hpf (0-5); UROBILINOGEN NORMAL (NORMAL); WHITE CELLS - URINE RARE /hpf (0-5)
[2017-06-22 12:40] LABS: BACTERIA FEW /hpf (NONE SEEN); MUCUS <1+ /lpf (NONE SEEN)
== END 2017-06-22 17:24 | disposition home or self-care (01) ==
LOC: D.OPS 08:47 → D.PAN 11:30 → D.OPS 11:30
PROVIDERS: Anesthesiology; Surgery
DX: N18.6 End stage renal disease (principal); D72.829 Elevated white blood cell count, unspecified; Z01.812 Encounter for preprocedural laboratory examination

== ENCOUNTER 2020-04-25 18:25 | Emergency (ER) | payer BC ==
[~2020-04-25] VITALS: Ht 182.9 cm; Wt 72.7 kg
[2020-04-25 18:31] VITALS: Ht 182.9 cm; Wt 72.7 kg
[2020-04-25] MEDS ORDERED: ASPIRIN81 MG PO (18:51)
[2020-04-25] MEDS ORDERED: LISINOPRIL20 MG PO (18:51)
[2020-04-25] MEDS ORDERED: VITAMIN D31250 MCG PO (18:51)
[2020-04-25] MEDS ORDERED: PREDNISONE5 MG PO (18:51)
[2020-04-25 18:52] LABS: BILIRUBIN NEGATIVE (NEGATIVE); KETONE NEGATIVE (NEGATIVE); NITRITE NEGATIVE (NEGATIVE); UROBILINOGEN NORMAL mg/dL (< 2)
[2020-04-25] MEDS ORDERED: MYFORTIC180 MG PO (18:52)
[2020-04-25] MEDS ORDERED: CRESTOR20 MG PO (18:52)
[2020-04-25] MEDS ORDERED: COREG25 MG PO (18:53)
[2020-04-25] MEDS ORDERED: SODIUM BICARBO650 MG PO (18:55)
[2020-04-25] MEDS ORDERED: ADALAT CC90 MG PO (18:55)
[2020-04-25] MEDS ORDERED: LASIX20 MG PO (18:56)
[2020-04-25] MEDS ORDERED: FLAGYL500 MG PO (18:56)
[2020-04-25 18:57] LABS: BACTERIA FEW HPF (NONE SEEN); SQUAMOUS EPITHELIAL 0-5 HPF (0-4); WHITE CELLS - URINE 0-5 HPF (0-1)
[2020-04-25] MEDS ORDERED: VANCOCIN HCL250 MG PO (18:57)
[2020-04-25] MEDS ORDERED: CARAFATE1 G PO (18:57)
[2020-04-25 19:18] LABS: BASOPHILS 0 % (0-2); EOSINOPHILS 0 % (0-7); HEMATOCRIT 33.8 % (42.0-54.0); HEMOGLOBIN 10.7 g/dL (13.5-17.5); IMMATURE GRANULOCYTES 1.3 % (0-5); LYMPHOCYTE ABS# 0.75 10x3/uL (1.32-3.57); LYMPHOCYTES 16.7 % (15-50); MCH 24.7 pg (26.0-34.0); MCHC 31.7 g/dL (31.0-37.0); MCV 78.1 fL (80.0-100.0); MEAN PLATELET VOLUME 8.7 fL (7.4-10.4); MONOCYTES 15.2 % (2-11); NEUTROPHIL ABS# 2.99 10x3/uL (1.78-5.38); NEUTROPHILS 66.8 % (40-80); PLATELET COUNT 278 10x3/uL (130-400); RBC 4.33 10x6/uL (4.20-6.10); RDW 14.6 % (11.5-14.5); WBC 4.5 10x3/uL (4.8-10.8)
[2020-04-25 19:36] LABS: CALC OSMOLALITY 279 mosm/kg (275-300); CALCIUM 8.6 mg/dL (8.5-10.1); CARBON DIOXIDE 26.5 mmol/L (21.0-32.0); CHLORIDE - SERUM 98 mmol/L (98-107); CREATININE - SERUM 4.7 mg/dL (0.6-1.3); GLUCOSE 118 mg/dL (74-106); POTASSIUM - SERUM 3.6 mmol/L (3.5-5.1); SODIUM 131 mmol/L (136-145); UREA NITROGEN 56 mg/dL (7-18); eGFR NON AFRICAN AMERICAN 14 mL/min (90-120)
[2020-04-25 19:41] LABS: ALBUMIN 2.9 g/dL (3.4-5.0); ALKALINE PHOSPHATASE 65 U/L (30-120); ALT (SGPT) 19 U/L (10-68); AMYLASE - SERUM 178 U/L (25-115); LIPASE 296 U/L (73-393); TROPONIN-I < 0.017 ng/mL (0.000-0.060)
[2020-04-25 20:46] VITALS: BP 127/87
[2020-04-25] MEDS ORDERED: PROTONIX40 MG PO (23:34)
[2020-04-25] MEDS ORDERED: ZOFRAN ODT4 MG/UDTAB PO (23:34)
== END 2020-04-25 23:50 | disposition home or self-care (01) ==
LOC: D.ER 18:25
PROVIDERS: Family Medicine
DX: A04.72 Enterocolitis due to Clostridium difficile, not specified as recurrent (principal); N18.4 Chronic kidney disease, stage 4 (severe); E86.0 Dehydration; K29.70 Gastritis, unspecified, without bleeding; I12.9 Hypertensive chronic kidney disease with stage 1 through stage 4 chronic kidney disease, or unspecified chronic kidney disease; Z20.822 Contact with and (suspected) exposure to COVID-19

== ENCOUNTER 2020-05-28 12:16 | Day surgery (SDC) | payer BC ==
[~2020-05-28] VITALS: Ht 182.9 cm; Wt 74.1 kg
[~2020-05-28 12:16] MED LIST changes: +ADALAT CC90 MG PO; +ASPIRIN81 MG PO; +CARAFATE1 G PO; +COREG25 MG PO; +CRESTOR20 MG PO; +FLAGYL500 MG PO; +LASIX20 MG PO; +LISINOPRIL20 MG PO; +MYFORTIC180 MG PO; +PROTONIX40 MG PO; +SODIUM BICARBO650 MG PO; +VANCOCIN HCL250 MG PO; +VITAMIN D31250 MCG PO; +ZOFRAN ODT4 MG/UDTAB PO
[2020-05-28 12:57] LABS: BASOPHILS 0.3 % (0-2); EOSINOPHILS 0.3 % (0-7); HEMOGLOBIN 11.3 g/dL (13.5-17.5); IMMATURE GRANULOCYTES 0.3 % (0-5); LYMPHOCYTE ABS# 0.74 10x3/uL (1.32-3.57); LYMPHOCYTES 11.8 % (15-50); MCH 25.6 pg (26.0-34.0); MCHC 30.5 g/dL (31.0-37.0); MCV 83.9 fL (80.0-100.0); MEAN PLATELET VOLUME 8.9 fL (7.4-10.4); MONOCYTES 8.7 % (2-11); NEUTROPHIL ABS# 4.94 10x3/uL (1.78-5.38); NEUTROPHILS 78.6 % (40-80); PLATELET COUNT 245 10x3/uL (130-400); RBC 4.41 10x6/uL (4.20-6.10); RDW 15.3 % (11.5-14.5); WBC 6.3 10x3/uL (4.8-10.8)
[2020-05-28 13:05] LABS: ANION GAP 18.8 mmol/L (8-16); CALCIUM 8.8 mg/dL (8.5-10.1); CARBON DIOXIDE 21.9 mmol/L (21.0-32.0); CREATININE - SERUM 4.4 mg/dL (0.6-1.3); POTASSIUM - SERUM 3.7 mmol/L (3.5-5.1)
[2020-05-28] MEDS ORDERED: PROBIOTIC250 MG (14:16)
[2020-05-28 14:18] VITALS: Ht 182.9 cm; Wt 74.1 kg
--- NOTE | 2020-05-28 16:28 | NUR ---
DR. OSEGUERA AT BEDSIDE. ORDERS NOTED. DISCHARGE INSTRUCTIONS GIVEN AND PT VERBALIZED AN UNDERSTANDING
--- NOTE | 2020-05-28 17:08 | NUR ---
IV D/C'D WITH CANNULA INTACT, PRESSURE HELD AND DRSG PLACED. DISHCARGED IN STABLE CONDITION AND WITHOUT C/O
--- NOTE | 2020-05-29 14:41 | OP ---
PATIENT NAME: ELLIOTT CARCAMO MEDICAL RECORD: [id number] :74 LOCATION:D.OPS ADMISSION DATE: SURGEON: MARTHA OSEGUERA MD DATE OF OPERATION: 05/28/2020 DATE OF SERVICE: 05/28/2020 PROCEDURE: EGD and colonoscopy. PREOPERATIVE DIAGNOSES: Abdominal pain, weight loss, bloating and nausea. DESCRIPTION OF EGD PROCEDURE: Upper endoscopy was performed. The endoscope was advanced through the mouth and advanced to the second part of the duodenum. The entire examined esophagus was normal. In the gastric body was erythema consistent with mild gastritis. Biopsies were taken. The entire examined duodenum was normal. Small bowel biopsies were taken. The patient tolerated the procedure well. There were no immediate complications. FINAL DIAGNOSES: Normal esophagus, mild gastritis, normal duodenum. PLAN: Check histology results. Advance diet. Return to GI office. DESCRIPTION OF COLONOSCOPY PROCEDURE: Colonoscopy was performed. The colonoscope was inserted through the rectum and advanced to the cecum, identified by the ileocecal valve and appendiceal orifice. The quality of the prep was good. There were a few sigmoid diverticula visualized. There was a 5-mm sigmoid colon polyp. This was removed with hot snare polypectomy. The patient tolerated the procedure well. There were no immediate complications. FINAL DIAGNOSES: Few sigmoid diverticula. Sigmoid colon polyp removed with hot snare polypectomy. PLAN: Check histology results. Advance diet. Return to GI office. TRANSINT:[id number] Voice Confirmation ID: [id number] DOCUMENT ID: [id number] MARTHA OSEGUERA MD at 1441 CC: [id number] DICTATION DATE: 05/28/20 1557 REPAIR DEPARTMENT SUPERVISOR: 05/28/20 1721 [facility] 05/28/20 [facility] [address] [place] [address]
== END 2020-05-28 16:50 | disposition home or self-care (01) ==
LOC: D.OPS 12:16
PROVIDERS: ATTEND Internal Medicine Gastroenterology
DX: R63.4 Abnormal weight loss (principal); R14.0 Abdominal distension (gaseous); K29.70 Gastritis, unspecified, without bleeding; K57.30 Diverticulosis of large intestine without perforation or abscess without bleeding; K63.5 Polyp of colon; R11.0 Nausea; R10.13 Epigastric pain; A04.71 Enterocolitis due to Clostridium difficile, recurrent